=== PATIENT | male | born 1955 | race Caucasian/White ===

== ENCOUNTER 2017-01-11 11:09 | Emergency (ER) | payer BC ==
[~2017-01-11] VITALS: Ht 175.3 cm; Wt 63.6 kg
[2017-01-11 11:15] VITALS: BP 133/76; PULSE 72; TEMP 98.4
== END 2017-01-11 12:12 | disposition home or self-care (01) ==
LOC: COL.ER 11:09
DX: S01.01XA Laceration without foreign body of scalp, initial encounter (principal); Z23 Encounter for immunization; W22.8XXA Striking against or struck by other objects, initial encounter; Y92.008 Other place in unspecified non-institutional (private) residence as the place of occurrence of the external cause

== ENCOUNTER → 2017-01-18 | Emergency (ER) | payer BC ==
[2017-01-18 17:36] VITALS: BP 105/70; PULSE 74; TEMP 98.1
== END | disposition home or self-care (01) ==
LOC: COL.ER 17:30
DX: Z48.02 Encounter for removal of sutures (principal)

== ENCOUNTER 2017-12-13 09:54 | Emergency (ER) | payer BC ==
[~2017-12-13] VITALS: Ht 175.3 cm; Wt 63.6 kg
[2017-12-13 09:56] VITALS: BP 126/75; TEMP 98.9
[2017-12-13 10:25] LABS: BASO % 0.4 % (0.0-2.0); EOS # 0.2 (0.0-0.7); EOS % 2.9 % (0-4.0); GRAN # 5.3 (1.4-6.5); HEMATOCRIT 40.4 % (42.0-52.0); HEMOGLOBIN 13.7 g/dl (13.5-18.0); LYMPH # 0.7 (1.2-3.4); LYMPH % 10.2 % (20.0-51.0); MEAN CELL VOLUME 90 fl (80.0-100.0); MEAN CORPUSCULAR HEMOGLOBIN 31 pg (27.0-31.0); MEAN CORPUSCULAR HGB CONC 34 g/dl (33.0-37.0); MEAN PLATELET VOLUME 9.5 fl (7.4-10.4); MONO # 0.7 (0.1-0.6); MONO % 10.2 % (1.7-9.3); PLATELET COUNT 218 K/mm3 (130-400); RED BLOOD COUNT 4.48 M/mm3 (4.20-5.60); REDCELL DISTRIBUTION WIDTH-CV 11.9 % (11.5-14.5)
[2017-12-13 10:38] LABS: ALBUMIN 3.9 gm/dL (3.5-5.0); BILIRUBIN,TOTAL 0.6 mg/dL (0.0-1.0); C-REACTIVE PROTEIN 1.3 mg/dL (0.0-0.9); CALCIUM 9.2 mg/dL (8.4-10.2); CREATININE, serum 0.77 mg/dL (0.66-1.25); POTASSIUM 4.3 mmol/L (3.4-5.0); TOTAL PROTEIN 7.5 gm/dL (6.4-8.2)
[2017-12-13] MEDS ORDERED: BACTRIM DS 8001 TAB PO (10:56)
[2017-12-13 11:13] VITALS: PULSE 71
== END 2017-12-13 11:18 | disposition home or self-care (01) ==
LOC: COL.ER 09:54
PROVIDERS: Nurse Practitioner
DX: S61.234A Puncture wound without foreign body of right ring finger without damage to nail, initial encounter (principal); Z87.442 Personal history of urinary calculi; W26.8XXA Contact with other sharp object(s), not elsewhere classified, initial encounter; Y92.009 Unspecified place in unspecified non-institutional (private) residence as the place of occurrence of the external cause

== ENCOUNTER 2019-09-06 07:38 | Day surgery (SDC) | payer BC ==
[~2019-09-06] VITALS: Ht 175.3 cm; Wt 62.1 kg
[~2019-09-06 07:38] MED LIST: BACTRIM DS 8001 TAB PO
[2019-09-06 08:03] VITALS: BP 134/83; PULSE 78; TEMP 97.7
[2019-09-06] MEDS ORDERED: PROAIR HFA0.09 MG/AC IH (08:29)
[2019-09-06] MEDS ORDERED: ADVIL200 MG PO (08:29)
[2019-09-06] MEDS ORDERED: CLARITIN 1010 MG/TAB PO (08:30)
[2019-09-06 09:30] VITALS: BP 120/82; PULSE 75; TEMP 98.8
--- NOTE | 2019-09-06 09:30 | NUR ---
Patient arrives to endo bay [facility] via cart, accompanied by endo RN Jolene. Bedside report received. Patient ambulates with standby assist to chair in room. Monitoring applied - VSS and WNL on room air. He is alert and oriented. He denies any pain or nausea. Offered and receives water and applesauce to eat. His is not in the waiting room, will check again later. Dr. Clancy comes to the bedside and talks with the patient.
[2019-09-06 09:45] VITALS: BP 117/78; PULSE 80
--- NOTE | 2019-09-06 09:45 | NUR ---
Patient is resting comfortably in room. He denies any needs at this time. He is tolerating PO well. VSS and WNL on room air.
[2019-09-06 10:00] VITALS: BP 118/76; PULSE 62
--- NOTE | 2019-09-06 10:00 | NUR ---
VSS and WNL on room air. Patient has some mild nausea, no emesis. Given a cool washcloth, crackers, and Zofran. Will continue to monitor.
[2019-09-06 10:15] VITALS: BP 112/78; PULSE 57
--- NOTE | 2019-09-06 10:15 | NUR ---
Patient is resting in room. He states that his nausea is improved. Offered him longer to stay and rest before discharge, but he states he is "ready to go home". is in agreement. Will return with supplies to remove IV and DC paperwork.
--- NOTE | 2019-09-06 10:28 | NUR ---
PIV removed by Heidi Ziegler RN. Heidi Ziegler RN also gives patient his discharge instructions at this time.
--- NOTE | 2019-09-06 10:39 | NUR ---
Patient escorted to exit via wheelchair by staff. Discharged to home with ride in private vehicle at 1039.
== END 2019-09-06 10:38 | disposition home or self-care (01) ==
LOC: SDCO 07:38
DX: Z12.11 Encounter for screening for malignant neoplasm of colon (principal); K64.0 First degree hemorrhoids; J45.909 Unspecified asthma, uncomplicated; Z88.0 Allergy status to penicillin
CPT/HCPCS: J2250; J2405; J3010; J7030